=== PATIENT | female | born 1990 | race African-American/Black ===

== ENCOUNTER 2017-12-29 17:33 | Emergency (ER) | payer OTHER ==
[~2017-12-29] VITALS: Ht 170.2 cm; Wt 95.3 kg
[~2017-12-29 17:33] MED LIST: IRON1 TA1; PRENATAL1 TAB
== END 2017-12-30 09:27 | disposition designated cancer center or children's hospital (05) ==
LOC: ER 17:33
DX: K80.21 Calculus of gallbladder without cholecystitis with obstruction (principal)